=== PATIENT | male | born 1955 | race Caucasian/White ===

== ENCOUNTER → 2022-04-10 13:48 | Outpatient (BNVA) | payer MEDICARE, SELFPAY | PROVIDERS: Visit Provider Orthopaedic Surgery | DX: M25.552 Pain in left hip (principal); M54.50 Low back pain, unspecified; M47.896 Other spondylosis, lumbar region | CPT/HCPCS: 72110; 73502; 99203 ==

== ENCOUNTER → 2022-04-26 12:03 | Outpatient (BNVA) | payer MEDICARE, SELFPAY | PROVIDERS: Referring Provider Orthopaedic Surgery; Visit Provider Orthopaedic Surgery | DX: M48.062 Spinal stenosis, lumbar region with neurogenic claudication (principal) | CPT/HCPCS: 99204 ==

== ENCOUNTER 2022-05-22 11:12 | Outpatient (CLI) | payer MEDICARE, SELFPAY ==
--- NOTE | 2022-05-22 11:45 | MR_ITS ---
WS: [id number] MRI LUMBAR SPINE NONCONTRAST TECHNIQUE: Sagittal T1, T2 and STIR imaging. Axial T1 and T2 imaging. CLINICAL INFORMATION: lower back pain COMPARISON: None. FINDINGS: Mild lumbar curve. No acute compression. Slight anterolisthesis L4 on L5. No high-grade central canal stenosis. L1-L2: Slight retrolisthesis L1 on L2. Mild annular bulging with a small LEFT subarticular protrusion . Impingement traversing LEFT L2 nerve root in the subarticular recess. Mild central canal stenosis. Mild facet arthropathy. Mild LEFT foraminal narrowing. L2-L3: Mild annular bulging. Mild facet arthropathy. Slight effacement of the ventral thecal sac. Spi nal canal and foramen are patent. L3-L4: Mild annular bulging. Slight impingement on the RIGHT subarticular recess and traversing right L4 nerve root. Small RIGHT foraminal protrusion with mild RIGHT foraminal narrowing. LEFT foramen is patent. Mild facet arthropathy. L4-L5: Grade 1 anterolisthesis. Disc osteophyte complex with endplate ridging. Impingement traversing RIGHT greater than LEFT L5 nerve roots. Advanced facet arthropathy. Mild RIGHT foraminal narrowing. Mild central canal stenosis at this level. L5-S1: Mild eccentric disc osteophytic ridging. Slight encroachment on the exiting bilateral LEFT gre ater than RIGHT L5 nerve roots. Mild facet arthropathy. Spinal canal is patent. Small bilateral facet effusions L4-L5 consistent with synovitis. Mild edema in the adjacent L5 pedicl es. Small amount of periarticular soft tissue edema. Small central protrusions in the lower cervical spine at C5-C6 and C6-C7 worse at C6-C7. Visualized pelvic bony structures: Normal. Paravertebral soft tissues: Normal. MR/MR lumbar spine wo con* [id number] IMPRESSION: 1. Mild lumbar curve. No acute compression. 2. Grade 1 anterolisthesis L4 on L5 with mild central canal stenosis. Impingem ent traversing RIGHT greater than LEFT L5 nerve roots in the subarticular reces s. Mild bilateral L4-L5 foraminal narrowing. 3. Shallow LEFT pericentral protrusion L1-L2 impinges the LEFT subarticular re cess and traversing LEFT L2 nerve root with mild central canal stenosis. 4. Narrowing of the RIGHT subarticular recess L3-L4 with slight contact of the exiting right L3 nerve root with mild RIGHT foraminal narrowing. Small RIGHT f oraminal protrusion. 5. Advanced facet arthropathy L4-L5 with bilateral facet effusions consistent with synovitis likely inflammatory or degenerative. 6. Eccentric osteophytic ridging L5-S1 slightly encroaches on the far exiting LEFT greater than RIGHT L5 nerve roots. 7. Mild central canal stenosis in the lower cervical spine with central disc p rotrusion C6-C7. 8. Partially visualized enlarged prostate. Recommend correlation PSA.
== END 2022-05-22 11:13 | disposition home or self-care (01) ==
PROVIDERS: PCP Family Medicine; Visit Provider Orthopaedic Surgery
DX: M51.26 Other intervertebral disc displacement, lumbar region (principal); M48.02 Spinal stenosis, cervical region; M47.812 Spondylosis without myelopathy or radiculopathy, cervical region; M47.816 Spondylosis without myelopathy or radiculopathy, lumbar region; N40.0 Benign prostatic hyperplasia without lower urinary tract symptoms
CPT/HCPCS: 72148

== ENCOUNTER → 2022-05-29 12:44 | Outpatient (BNVA) | payer MEDICARE, SELFPAY | PROVIDERS: PCP Family Medicine; Visit Provider Physician Assistant | DX: M48.062 Spinal stenosis, lumbar region with neurogenic claudication (principal) | CPT/HCPCS: 99203 ==

== ENCOUNTER → 2022-06-18 09:26 | Outpatient (BNVA) | payer MEDICARE, SELFPAY | PROVIDERS: PCP Family Medicine; Visit Provider Anesthesiology Pain Medicine | DX: M48.062 Spinal stenosis, lumbar region with neurogenic claudication (principal); M47.816 Spondylosis without myelopathy or radiculopathy, lumbar region; M51.16 Intervertebral disc disorders with radiculopathy, lumbar region; M43.16 Spondylolisthesis, lumbar region; Z96.652 Presence of left artificial knee joint; Z98.890 Other specified postprocedural states; Z87.19 Personal history of other diseases of the digestive system; M79.604 Pain in right leg; M79.605 Pain in left leg | CPT/HCPCS: 99205 ==

== ENCOUNTER → 2024-05-25 14:04 | Outpatient (BNVA) | payer MEDICARE, SELFPAY | PROVIDERS: PCP Family Medicine; Visit Provider Nurse Practitioner | DX: M17.11 Unilateral primary osteoarthritis, right knee (principal); Z68.31 Body mass index [BMI] 31.0-31.9, adult | CPT/HCPCS: 73560; 73565; 99204 ==

== ENCOUNTER 2024-06-24 08:00 | Outpatient (CLI) | payer MEDICARE, SELFPAY ==
--- NOTE | 2024-06-24 08:00 | CT_ITS ---
WS: [id number] CT RIGHT knee, noncontrast HISTORY: M25.569 - Pain in unspecified knee TECHNIQUE: Protocol for [facility] total knee replacement has been obtained. This includes axial imaging th rough the RIGHT hip, RIGHT knee and RIGHT ankle. DLP: 880.43 mGy.cm COMPARISON: Knee radiograph 05/25/2024 Symmetric appearance of the hips. Bilateral CAM deformities. Prostate gland is enlarged encroaching i nto the urinary bladder. RIGHT knee: Tricompartment joint space narrowing greatest involving the medial compartment with small osteophytes. No fractures or bone destruction. Small suprapatellar joint effusion. Large Shin's cys t. RIGHT ankle: Negative. CT/CT knee RT [facility] [id number] IMPRESSION: CT imaging provided for [facility] robotic total knee replacement.
== END 2024-06-24 08:01 | disposition home or self-care (01) ==
PROVIDERS: Visit Provider Nurse Practitioner
DX: Z01.818 Encounter for other preprocedural examination (principal); M17.11 Unilateral primary osteoarthritis, right knee; M25.761 Osteophyte, right knee; M25.461 Effusion, right knee; M71.21 Synovial cyst of popliteal space [Baker], right knee; R00.1 Bradycardia, unspecified
CPT/HCPCS: 73700; 80053; 81003; 85025; 93005

== ENCOUNTER 2024-06-30 13:57 | Observation (INO) | payer MEDICARE, SELFPAY ==
[2024-06-30] VITALS (13 sets, daily range): BP systolic 91–125; BP diastolic 62–93; PULSE 60–77; RESP 13–20; TEMP 36.1–36.8; O2SAT 92–100; BMI 30.1; BMI 31.4
[2024-06-30] MEDS: CELEcoxib 200 mg Capsule 400 MG PO (06:45)
[2024-06-30] MEDS: gabapentin 300 mg Capsule PO (06:45)
[2024-06-30] MEDS: acetaminophen 1,000 MG/100 ML PIGGYBACK 400 MG IV ×2 (06:50→17:43)
[2024-06-30] MEDS: sodium chloride 0.9% 1,000 ML 30 ML IV (06:50)
--- NOTE | 2024-06-30 07:06 | W.PM.OPSUD ---
Surgery/Procedure H&P Update DATE OF PROCEDURE: June 30, 2024 DATE H&P PERFORMED: 05/25/24 H&P UPDATE INFORMATION: I have reviewed H&P completed within last 30 days, I have examined patient prior to procedure and No changes to prior documentation PLANNED PROCEDURE: Operation Date: 06/30/24 08:15 Proposed Procedures p Perez Robot Total Knee Arthroplasty(Right) - Lisa Landin MD Related Problem List Diagnoses (1) Primary osteoarthritis of right knee:
[2024-06-30] MEDS: midazolam 1 mg/mL INJ 2 mL 2 MG IVP (07:24)
[2024-06-30] MEDS: VANCOMYCIN ADD-Vantage 1,000 MG in 0.9% NaCl ADD-Vantage 250 ML 250 MG IV ×2 (07:40→07:41)
--- NOTE | 2024-06-30 07:41 | PC.NURSE ---
0735: RLE block, mid thigh performed by GUY, 30 ml of .5% ropivicaine injected using ultrasound guidance
--- NOTE | 2024-06-30 07:43 | P.ANESASSM_ITS ---
Pre-Anesthetic Assessment Height/Weight: Height 1.83 m Weight 100.698 kg O2 Del Method Room Air 06/30/24 06:37 Operation Date: 06/30/24 08:15 Proposed Procedures p Perez Robot Total Knee Arthroplasty(Right) - Lisa Landin MD Familial anesthetic complications: Hx urinary retention post-op Was Beta Mu taken within 24 hours: N/A Was Clonidine taken within 24 hours: N/A Last intake: Intake Last Liquid Date 06/29/24 Last Liquid Time 22:00 Last Solid Date 06/29/24 Last Solid Time 16:00 Social No alcohol and No tobacco Exam alert, oriented x 3, clear to auscultation bilaterally and regular rate & rhythm Airway Mallampati: Class II Dentition: other (multiple missing) Metabolic Thyroid Disease Anesthetic Plan ASA status: 2 Anesthesia: Regional (specify below) Risk of > 500 ml blood loss (7ml/kg in children): Yes, adequate IV access and fluids planned Medications/Allergies Home Medications Medication Instructions Recorded Confirmed Last Taken Type celecoxib 200 mg capsule (Celebrex) 200 mg PO DAILY 04/26/22 06/30/24 06/29/24 History levothyroxine 13 mcg capsule 13 mcg PO DAILY 04/26/22 06/30/24 06/29/24 History tamsulosin 0.4 mg capsule (Flomax) 0.4 mg PO DAILY 04/26/22 06/30/24 06/29/24 History Allergies Allergy/AdvReac Type Severity Reaction Status Date / Time No Known Allergies Allergy Verified 06/29/24 11:06 Current Medications Generic Name Dose Route Start Last Admin Trade Name Freq PRN Reason Stop Dose Admin Sodium Chloride 1,000 mls @ 30 mls/hr 06/30/24 06:30 06/30/24 06:50 Sodium Chloride 0.9% IV 07/01/24 06:29 30 mls/hr .Q24H TREV Administration Midazolam HCl 2 mg 06/30/24 06:25 06/30/24 07:24 Midazolam 1 Mg/Ml Inj 2 Ml IVP 2 mg Q5M PRN Administration Preop Anxiety PFSH Anesthesia Medical History (Updated 05/31/24 @ 22:38 by KAMRYN Mann) Primary osteoarthritis of right knee Social History Smoking and tobacco/nicotine status: never used tobacco/nicotine Second hand smoke exposure: No Alcohol intake: current Substance/Drug Use: never Data Anesthesia Cardiac Studies: No Data to Display
--- NOTE | 2024-06-30 07:44 | ANES.PROC ---
Anesthesia Procedures Procedure/Date: 06/30/24 Nerve Block ^: Nerve Block 1: Main Anesthesia: spinal anesthesia block Time Out Performed: Yes Consent: requested by attending/covering physician, from patient, from other, risks and benefits reviewed and patient agrees to proceed Nerve block location: adductor canal (R) Anesthesia monitors applied: pulse oximetry, EKG and BP cuff Nerve block position: supine Anesthetic Used: ropivicaine 0.5% (30) and with decadron (4 mg) Ultrasound used to: recognize landmarks and visualize and ID femerol nerve Nerve Stimulator Used?: No Interscalene/Femoral BLK: 4 stimuplex 21 g needle used for position and inplane approach, visualize local anesthetic spread and no vascular puncture identified Injection: neg aspiration of heme Patient Tolerated Procedure: well and no complications Complications: none
[2024-06-30] MEDS: ceFAZolin 2,000 mg SDV 2000 MG IVP (08:08)
[2024-06-30] MEDS: tranexamic acid 1,000 MG/100 ML PREMIX 600 MG IV ×2 (08:25→16:52)
[2024-06-30] MEDS: ceFAZolin 1,000 mg SDV 2000 MG IRRIGATION (09:11)
[2024-06-30] MEDS: vancomycin 1,000 MG SDV 1000 MG XX (09:16)
[2024-06-30] MEDS: sodium chloride 0.9% 50 mL Bag XX (09:17)
[2024-06-30] MEDS: BUPivacaine liposome 13.3 mg/mL SDV 20 mL 266 MG INFILTRATI (09:17)
[2024-06-30] MEDS: BUPivacaine 0.5% INJ 30 mL INJECTION (09:17)
--- NOTE | 2024-06-30 11:44 | XR_ITS ---
WS: [id number] XR knee RT 1-2V [id number] REASON FOR EXAM: post op FINDINGS: Total right knee arthroplasty. The components of the arthroplasty are intact and in proper position and alignment. No focal bony abnormality. XR/XR knee RT 1-2V [id number] IMPRESSION: Immediate postoperative examination. Total right knee arthroplasty without abno rmality.
--- NOTE | 2024-06-30 11:52 | PM.OP ---
Operative Report Date of procedure: June 30, 2024 Pre-op diagnosis: Primary osteoarthritis right knee Post-op diagnosis: Primary osteoarthritis right knee Post-op findings: Severe degenerative osteoarthritis of the right knee with large osteophytes and varus deformity Procedure done: Right total knee arthroplasty with Perez guidance Implants: The [place] total knee system with a size 6 triathlon beaded cruciate retaining femur right, a triathlon titanium tibial component size 7 beaded, a triathlon X3 tibial bearing CS insert size 7x9 mm and a beaded triathlon titanium asymmetric patella size 40 x 11 mm Specimens removed/disposition: Bone, disposed of Pathology: None Surgeon: Lisa Landin MD Leak Detection Engineer: Janice Alejandro Leak Detection Engineer: Whose services were required for retraction, positioning, intraoperative exposure, and closure Anesthesia: Spinal (With preoperative regional block, ASA 2) Estimated blood loss (mL): 250 Tourniquet time (min): 0 (Not utilized) IV fluids (mL): 1,300 Urine output (mL): 1,100 Complications: None Findings: Severe degenerative osteoarthritis of the right knee with varus deformity Condition: stable Disposition: PACU (Then to floor for postoperative rehabilitation and pain management) Brief History: This 69-year-old gentleman presented today for same-day surgery in the form of right total knee arthroplasty. Previously, the patient had a left total knee arthroplasty with Dr. Beck while he was still in [place]. He has chronic pain in this right knee at the moment. He is unable to walk long distance or use stairs. Conservative treatment options were not successful for the patient, and he wished to proceed with total knee arthroplasty. Risks and complications were discussed with him preoperatively, and consents were signed in the office. Procedure: The patient was brought to the operating theater, and after undergoing spinal anesthesia with MAC, ASA 2, the right lower extremity was prepped with Dura-Prep and draped in usual fashion following placement of a tourniquet high on the leg. The leg was then draped free.? Tourniquet was not elevated throughout the surgical procedure. Prior to commencement of the procedure, a surgical pause was performed, and at the time of the surgical pause, we confirmed the site and side of surgery. Additionally, we confirmed the appropriate and timely administration of preoperative antibiotics, Ancef 2 g as well as vancomycin 1 g due 2 history of prior staph infection.? The availability of equipment was confirmed, and the patient's identity was verbalized as well. Following the surgical pause, an incision was made centering over the patella continuing proximally and distally as necessary to allow access to the knee joint. Dissection continued through skin and soft tissues using a scalpel. Hemostasis was obtained using electrocautery. The skin incision was followed by a median parapatellar arthrotomy. The leg was extended and the patella was able to be displaced laterally.? Appropriate arrays and markers were placed in appropriate position for use of the Perez.? Preoperative planning had been accomplished and was discussed in detail with the [facility] payroll representative.? Intraoperative mapping of the femur and tibia was accomplished after the arrays were placed.? Internal markers were also placed.? Once we had accomplished the Perez mapping, we began the appropriate resections for placement of the prosthesis.? The plan was for a cruciate retaining left total knee arthroplasty. Once appropriate mapping had been accomplished retraction was established using manual retraction by surgical technicians and also the Perez leg positioner and retractors.? The knee was evaluated.? There was significant osteoarthritic change as well as an extension contracture and varus deformity.? Appropriate bone resection was accomplished using the Perez.? The femur was sized to a size 6.? Following femoral cuts, attention was directed to the tibia.? Osteophytes were removed prior to this portion of the procedure.? We had performed a medial release at the beginning of the procedure to allow for placement of the array.? Proximal tibia was evaluated, and it was felt that appropriate size for the tibia was a size 7.? Tray was noted to fit nicely with good coverage.? Rim fit was accomplished with the size . A trial reduction was accomplished after osteophytes have been removed as well as the medial and lateral menisci.? We had removed the anterior cruciate ligament at the beginning of the case and preserved the posterior cruciate ligament.? Trial reduction was accomplished with a size 6 femoral cruciate retaining component, a size 7 tibial tray and a size 7 CS tibial bearing insert which was 9 mm. Alignment was felt to be appropriate as well.? Trial components were removed after the femur had been drilled.? Prior to removal of the tibial tray which had been pinned in position with appropriate rotation as determined by the Perez plan, we broached the tibia.? Subsequently, the 4 drill holes were made for the prosthetic component.? All trial components were removed, and the wound was irrigated.? Plans were made for insertion of the prosthetic components.? Prior to this, the patella was manually prepared.? After resection of the articular surface with the jogging system, it was measured and measured a 40 mm patella.? We resected approximately 11 mm of patella.? Patellar height was restored with the patellar component. Once again, the wound was irrigated.? The Tritanium tibia was impacted into position.? The beaded femur was then impacted into position in a cementless fashion. The CS tibial insert was placed prior to placement of the femoral component. The patella was pressed into position with a patellar clamp.? Exparel was injected about the components deep and superficially.? The knee was then copiously irrigated with betadine and saline and suctioned dry. Attention was then directed to closure. Closure was accomplished with 0 Vicryl in the fascial tissues.? The suture line of 0 Vicryl was supplemented with strata fix, #1, with a running suture from proximal to distal and a second running stitch from distal to proximal.? This was followed by Surgiflo and vancomycin powder.? Following this, a 2-0 Strata Fix was used in the subcutaneous tissues, and the skin was closed with 3-0 Strata fix.? Care was taken to assure an excellent subcutaneous as well as skin closure.? A sterile dressing was then placed consisting of Dermabond Prineo, OpSite, ABD, sterile soft roll, and an Eduard wrap including over the foot. The patient was returned the Recovery Room in a satisfactory condition. X-rays were obtained and reviewed there.? The patient will be discharged to the floor for postoperative rehabilitation and pain management. Related Problem List Diagnoses (1) Primary osteoarthritis of right knee:
--- NOTE | 2024-06-30 13:55 | PC.NURSE ---
0392 patient report given to berry
--- NOTE | 2024-06-30 14:17 | ANE.PACU2 ---
Inpatient post-anesthesia follow up: Airway intact: Yes Vital signs: Temperature 97 F Pulse Rate 60 Respiratory Rate 18 Blood Pressure 101/72 Pulse Oximetry 97 Oxygen Delivery Me thod Room Air Oxygen Flow Rate 8 Fraction of Inspir ed Oxygen Hydration adequate: Yes Nausea and vomiting: No Pain level: 1 Mental status: Baseline
[2024-06-30] MEDS: oxyCODONE 5 mg IR Tab/Cap PO ×2 (17:31→22:55)
[2024-06-30] MEDS: ceFAZolin 1,000 mg SDV 2000 MG IVP (17:57)
[2024-06-30] MEDS: calcium carbonate 500 mg Chew Tablet 1000 MG PO (18:28)
[2024-06-30] MEDS: sennosides-docusate Tablet 2 TAB PO (18:28)
[2024-06-30] MEDS: mupirocin oint 22 gm 1 APPLIC NASAL (18:28)
[2024-06-30] MEDS: CELEcoxib 200 mg Capsule PO (18:29)
[2024-06-30] MEDS: iron polysaccharide complex 150 mg Capsule PO (18:29)
[2024-06-30] MEDS: chlorhexidine gluconate 0.12% Btl 473 mL 30 ML MUCOUS MEM (22:58)
[2024-07-01] VITALS (7 sets, daily range): BP systolic 115–148; BP diastolic 69–73; PULSE 56–70; RESP 16–18; TEMP 36.8–37.1; O2SAT 94–97; BMI 31.9
[2024-07-01] MEDS: ceFAZolin 1,000 mg SDV 2000 MG IVP ×2 (00:26→10:54)
[2024-07-01] MEDS: acetaminophen 1,000 MG/100 ML PIGGYBACK 400 MG IV ×2 (00:27→09:49)
--- NOTE | 2024-07-01 02:53 | PC.NURSE ---
Patient refused SONYA hose. Patient states I don't want that damn thing. Patient states foot pumps are keeping him awake, but agreed to leave them on to prevent blood clots.
[2024-07-01] MEDS: oxyCODONE 5 mg IR Tab/Cap PO ×2 (02:57→06:59)
[2024-07-01] MEDS: CELEcoxib 200 mg Capsule PO (02:57)
--- NOTE | 2024-07-01 03:04 | PC.NURSE ---
Patient rates pain 06/04. This urse educated patient on medications being administered: Oxy and Celebrex. Patient states ain't neither one of them worth a damn. I asked patient if there is anything that will help the pain. Patient states the only thing that gets rid of this arthritis pain is 100 proof.
[2024-07-01 05:31] LABS: Basophils # 0.1 10^3/uL (0.0-0.1); Basophils % 0.3 %; Eosinophils # 0.1 10^3/uL (0.0-0.8); Eosinophils % 0.6 %; Hematocrit 46.5 % (37-53); Lymphocytes # 1.9 10^3/uL (0.8-4.8); Lymphocytes % 10.1 %; Mean Corpuscular HGB Conc 30.1 g/dL (30-55); Mean Corpuscular Hemoglobin 32.4 pg (27-33); Mean Corpuscular Volume 107.6 fl (82-101); Mean Platelet Volume 10.7 fL (7.4-10.4); Monocytes # 1.7 10^3/uL (0.2-0.9); Monocytes % 9.2 %; Neutrophils # 15.07 10^3/uL (1.8-7.7); Neutrophils % 79.4 %; Nucleated Red Blood Cells % 0 %; Platelet Count 221 10^3/cmm (157-399); Red Blood Count 4.32 10^6/uL (3.85-5.65); Red Cell Distribution Width 12.5 % (12.1-15.1); White Blood Count 18.96 10^3/uL (3.29-11.43)
[2024-07-01 05:58] LABS: Slide Review Slide Review Perform
[2024-07-01] MEDS: cholecalciferol (vitamin D3) 1,000 unit Tablet 1000 UNIT PO (07:58)
[2024-07-01] MEDS: calcium carbonate 500 mg Chew Tablet 1000 MG PO (07:58)
[2024-07-01] MEDS: aspirin 325 mg EC Tablet PO (07:58)
[2024-07-01] MEDS: iron polysaccharide complex 150 mg Capsule PO (07:58)
[2024-07-01] MEDS: sennosides-docusate Tablet 2 TAB PO (07:58)
[2024-07-01] MEDS: multivitamin therapeutic Tablet 1 TAB PO (07:58)
[2024-07-01] MEDS: mupirocin oint 22 gm 1 APPLIC NASAL (08:01)
[2024-07-01] MEDS: chlorhexidine gluconate 0.12% Btl 473 mL 30 ML MUCOUS MEM (08:01)
[2024-07-01] MEDS: VANCOMYCIN ADD-Vantage 1,000 MG in 0.9% NaCl ADD-Vantage 250 ML 250 MG IV (08:31)
--- NOTE | 2024-07-01 09:04 | PC.CHAP ---
Pastoral Care Encounter/Spiritual Assessment Type of Contact [] Declined business unit director visit [] Patient/Family/Request visit [] Outpatient visit [] Follow-up visit [] Physician referral [] Code/Alert [] Routine visit [] Staff referral [] Actively dying [] Patient sleeping [] Family support [] [] Out of room [] Palliative care [] [x] Receiving care in room [] Pre-surgical visit [] Trauma [] Long length of stay [] ICU visit [] Other: Relational/Emotional Strength [] Patient feels connected with others/family/visitors/staff [] Distress [] Loneliness/isolation [] Abandonment Spirituality of Patient [] Person of Eun [] Attends Rastafari of their Eun [] Believes in Prayer [] Reads Bible or Episcopal materials [] There are Spiritual issues to be addressed De Icer Kit Assembler Interventions [] Prayer [] Active listening [] Non-anxious presence [] Spiritual/emotional support [] Crisis/trauma care [] Spiritual counseling [] Bereavement support [] Provided bereavement packet [] Provided Bible/devotional materials [] Provided toy/stuffed animal, coloring book to patient or family member [] Provided Communion [] Anointing/Ina [] Salvation [] Completed spiritual assessment [] Other: Impact on Illness or Injury [] Angry [] Fearful [] Anxious [] Often cries [] Exhaustion [] Unable to work [] Unable to attend scientology [] Unable to walk/stand [] Unable to read [] Unable to drive [] Unable to eat/drink [] Unable to sleep [] Unable to be with family [] Patient intubated [] Other: Summary Time spent with patient
--- NOTE | 2024-07-01 14:59 | PM.DCS ---
Discharge Providers Date of Admission: 06/30/24 13:57 Date of Discharge: July 01, 2024 Attending Provider at Admission: Lisa Landin MD Attending Provider at Discharge: Lisa Landin MD Diagnoses at Discharge Discharge Diagnosis (1) Primary osteoarthritis of right knee: Status: Chronic (2) Status post total right knee replacement not using cement: Status: Acute Permanent problem details: Date of procedure: June 30, 2024 Diagnosis: Primary osteoarthritis right knee Procedure done: Right total knee arthroplasty with Perez guidance Implants: The [employer] total knee system with a size 6 triathlon beaded cruciate retaining femur right, a triathlon titanium tibial component size 7 beaded, a triathlon X3 tibial bearing CS insert size 7x9 mm and a beaded triathlon titanium asymmetric patella size 40 x 11 mm Reason for Visit Reason for Visit: M25.921 [id number] Brief History: This 69-year-old gentleman presented today for same-day surgery in the form of right total knee arthroplasty. Previously, the patient had a left total knee arthroplasty with Dr. Beck while he was still in [place]. He has chronic pain in this right knee at the moment. He is unable to walk long distance or use stairs. Conservative treatment options were not successful for the patient, and he wished to proceed with total knee arthroplasty. Risks and complications were discussed with him preoperatively, and consents were signed in the office. Hospital Course Hospital Course Patient was admitted to the hospital under observation status for postoperative rehabilitation and pain management. He did well and was discharged home on the first postoperative day. The patient had no significant complaints. There was no evidence of DVT. Patient was able to straight leg raise, and he was uncomfortable for discharge. He therefore was discharged home to follow-up with me in the office as scheduled. Physical Exam Const: COMMON NORMALS: no acute distress, average body habitus, patient oriented x3 and alert GENERAL APPEARANCE: cooperative and comfortable ORIENTATION/CONSCIOUSNESS: Yes awake HENMT: COMMON NORMALS: normocephalic and atraumatic HEAD & SCALP: normocephalic and atraumatic Eye: GENERAL EYE: appearance normal, both eyes and all related structures Chest: COMMONS NORMALS: normal inspection of the chest Resp: COMMON NORMALS: normal respiratory effort EFFORT & INSPECTION: Yes able to speak in complete sentences and Yes symmetric chest movement Extremity: RIGHT LOWER EXTREMITY: Yes knee joint (Large outer dressing is removed.) Right knee: Yes inspection (OpSite is intact), Yes ROM (Able to straight leg raise.) and Yes neurovascular exam (Intact with no evidence of DVT.) Neuro: COMMON NORMALS: patient oriented x3 SENSORIUM/ORIENTATION: Yes alert Psych: COMMON NORMALS: mental status grossly normal APPEARANCE: Yes grossly normal ATTITUDE: Yes calm and Yes engaged ATTENTION/CONCENTRATION: Yes attention grossly intact Skin: COMMON NORMALS: no rashes or lesions noted GENERAL SKIN EXAM: no rashes or lesions noted Urinary Catheter Management: Jordan Latex: Cath Placed During This Visit: yes, but has since been removed by the nurse Reason for Continuing Indwelling Catheter: Decision to DC Catheter Urinary Catheter Date of Insertion: 06/30/24 Urinary Catheter Time of Insertion: 08:30 Date Urinary Catheter Removed: 06/30/24 Time Urinary Catheter Discontinued: 17:55 Discharge Data Studies Completed and Pending Completed Studies During Hospitalization Category Date Time Status XR knee RT 1-2V [id number] Routine Exams 06/30/24 11:44 Completed Radiology Impressions Knee X-Ray 06/30/24 11:44 IMPRESSION: Immediate postoperative examination. Total right knee arthroplasty without abnormality. Laboratory Results WBC 18.96 10^3/uL (3.29-11.43) H 07/01/24 05:16 RBC 4.32 10^6/uL (3.85-5.65) 07/01/24 05:16 Hgb 14.00 g/dL (11.27-16.99) 07/01/24 05:16 Hct 46.5 % (37-53) 07/01/24 05:16 MCV 107.6 fl (82-101) H 07/01/24 05:16 MCH 32.4 pg (27-33) 07/01/24 05:16 MCHC 30.1 g/dL (30-55) 07/01/24 05:16 RDW 12.5 % (12.1-15.1) 07/01/24 05:16 Plt Count 221 10^3/cmm (157-399) 07/01/24 05:16 MPV 10.7 fL (7.4-10.4) H 07/01/24 05:16 Neut % (Auto) 79.4 % 07/01/24 05:16 Lymph % (Auto) 10.1 % 07/01/24 05:16 [place] % (Auto) 9.2 % 07/01/24 05:16 Eos % (Auto) 0.6 % 07/01/24 05:16 Baso % (Auto) 0.3 % 07/01/24 05:16 Neut # (Auto) 15.07 10^3/uL (1.8-7.7) H 07/01/24 05:16 Lymph # (Auto) 1.9 10^3/uL (0.8-4.8) 07/01/24 05:16 [place] # (Auto) 1.7 10^3/uL (0.2-0.9) H 07/01/24 05:16 Eos # (Auto) 0.1 10^3/uL (0.0-0.8) 07/01/24 05:16 Baso # (Auto) 0.1 10^3/uL (0.0-0.1) 07/01/24 05:16 Nucleated RBC % (auto) 0 % 07/01/24 05:16 Nucleated RBCs # 0.0 /100WBC 07/01/24 05:16 Vitals Last Vital Signs Temp 98.5 F 07/01/24 11:30 Pulse 70 07/01/24 11:30 Resp 18 07/01/24 11:30 BP 136/71 07/01/24 11:30 Pulse Ox 94 07/01/24 11:30 O2 Del Method Room Air 07/01/24 11:30 O2 Flow Rate 8 06/30/24 11:45 Discharge Plan Discharge Patient Disposition: Home Condition: Stable Prescriptions: New acetaminophen 500 mg Tablet 1,000 mg PO Q8H 15 Days Qty: 90 0RF aspirin 325 mg Tablet,Delayed Release (Dr/Ec) 325 mg PO DAILY 30 Days Qty: 30 0RF oxycodone 5 mg Tablet 5 - 10 mg PO Q4H PRN (Reason: Moderate Pain) 7 Days Qty: 30 0RF Continued celecoxib [Celebrex] 200 mg capsule 200 mg PO DAILY levothyroxine 13 mcg capsule 13 mcg PO DAILY tamsulosin [Flomax] 0.4 mg capsule 0.4 mg PO DAILY Discharge Orders: Discharge Order (Routine); Ordered 07/01/24 Ordered By: Lisa Landin Other Ambulatory Orders: DME: Walker (Order) Location: None Selected Ordered By: Lisa Landin Referrals: Lisa Landin MD [Physician] - 07/15/24 11:00 am Discharge Diet: Advance as tolerated and Usual diet Discharge Activity: Limit activity as instructed, Use walker/crutches as instructed and As per PT/OT instructions Patient Instructions: Aspirin (By mouth), Oxycodone, Rapid Release (By mouth), Acute Wound Care (DC), Total Knee Replacement (GEN), Joint Replacement Stoplight, Opioid Safety, Post Anesthesia Care Activity Restrictions/Additional Instructions: Ice to right knee. You may weight-bear as tolerated. Ambulation, gait training, and strengthening as instructed by physical therapy. Keep your dressing in place until it comes off on its own or begins to leak. Do not lift heavy objects. Do not cause pivotal injury to your knee. Discharge Attestations Time Spent in Discharge Care*: greater than 30 min Specific Discharge Activities: educating patient, documenting/other paperwork and evaluating patient/reviewing data Quality Metrics Clinical Quality Measures [ No reported AMI, CVA or VTE this stay] Coding Level of Care Code Acute Code for Chg Fwd Diagnoses Primary osteoarthritis of right knee M17.11 Status post total right knee replacement not using cement Z96.651
== END 2024-07-01 15:19 | disposition home or self-care (01) ==
LOC: MEDSURG 18:39
PROVIDERS: Admitting Provider Specialist; Visit Provider Specialist
PROC: 8E0Y0CZ Robotic Assisted Procedure of Lower Extremity, Open Approach (ICD-10-PCS; CPT 27447; principal; 2024-06-30 08:15)
DX: M17.11 Unilateral primary osteoarthritis, right knee (principal); E03.9 Hypothyroidism, unspecified
CPT/HCPCS: 27447; 20985; 36415; 51702; 73560; 85025; 97110; 97116; 97161; 97165; C1776; C9290; G0378; J0131; J0690; J1100; J2250; J2371; J2704; J2795; J3370; J3490; J7030; J7050

== ENCOUNTER → 2024-07-15 11:00 | Outpatient (BNVA) | payer MEDICARE, SELFPAY | PROVIDERS: Visit Provider Specialist | DX: Z96.651 Presence of right artificial knee joint (principal); Z48.89 Encounter for other specified surgical aftercare | CPT/HCPCS: 73560; 73565; 99024 ==

== ENCOUNTER → 2024-08-24 09:29 | Outpatient (BNVA) | payer MEDICARE, SELFPAY | PROVIDERS: Visit Provider Specialist | DX: Z96.651 Presence of right artificial knee joint (principal); M17.11 Unilateral primary osteoarthritis, right knee | CPT/HCPCS: 73560; 73565; 99024 ==

== ENCOUNTER → 2024-12-02 13:14 | Outpatient (BNVA) | payer MEDICARE, SELFPAY | PROVIDERS: Visit Provider Specialist | DX: Z98.890 Other specified postprocedural states (principal); Z96.651 Presence of right artificial knee joint | CPT/HCPCS: 73560; 73565; 99214 ==

== ENCOUNTER → 2025-01-20 10:52 | Outpatient (BNVA) | payer MEDICARE, SELFPAY | PROVIDERS: Visit Provider Specialist | DX: Z96.651 Presence of right artificial knee joint (principal) | CPT/HCPCS: 73560; 73565; 99213 ==

== ENCOUNTER → 2025-05-12 09:51 | Outpatient (BNVA) | payer MEDICARE, SELFPAY | PROVIDERS: Visit Provider Specialist | DX: Z47.89 Encounter for other orthopedic aftercare (principal); Z96.651 Presence of right artificial knee joint; M06.4 Inflammatory polyarthropathy | CPT/HCPCS: 36415; 73560; 73565; 80053; 84550; 85025; 85651; 86140; 86200; 86225; 86235; 86431; 99214 ==